=== PATIENT | male | born 1975 | race Caucasian/White ===

== ENCOUNTER → 2018-11-22 | Outpatient (CLI) | payer BC ==
--- NOTE | 2018-11-22 09:46 | CT ---
EXAMINATION TYPE: CT lower extremity RT w con DATE OF EXAM: 11/22/2018 COMPARISON: None HISTORY: 43 year-old male inner right thigh mass TECHNIQUE: Contiguous axial scanning of the right femur performed with IV Contrast, patient injected with 100 mL of Isovue 300. Coronal/sagittal reconstructions performed. CT DLP: 2000.4 mGycm Automated exposure control for dose reduction was used. FINDINGS: Very large patient body habitus. There is an edematous panniculus of the medial aspect of the right thigh corresponding to the mass. E xtensive edematous change is present underlying this region. No abnormal nodular or masslike area of enhancement is present here. There is associated skin thickening in the region measures approximately 21.8 x 19.4 cm. No edema seen along the deeper fascial planes. Underlying osseous structures show no periostitis or o steolysis. There is tricompartmental degenerative change of the right knee. IMPRESSION: MARKEDLY EDEMATOUS PANNICULUS FROM THE MEDIAL ASPECT OF THE RIGHT THIGH MEASURING UP TO 22 CM WITH EX TENSIVE CONFLUENT EDEMA AND SKIN THICKENING. THERE IS NO DISCRETE MASS. CONSIDER A SKIN PUNCH BIOPSY TO FURTHER EVALUATE THE LOCALIZED PROCESS. THE UNDERLYING SUPERFICIAL FASCIA, MUSCULATURE, AND FEMUR OF THE RIGHT THIGH ARE UNREMARKABLE.
== END ==
LOC: RADCTMAIN 07:29
PROVIDERS: ATTEND Surgery
DX: R60.9 Edema, unspecified (principal); M79.89 Other specified soft tissue disorders

== ENCOUNTER → 2020-04-08 | Outpatient (CLI) | payer OTHER ==
--- NOTE | 2020-04-09 08:53 | CT ---
EXAMINATION TYPE: CT lower extremity RT w con DATE OF EXAM: 04/08/2020 COMPARISON: HISTORY: Localized swelling Rt leg, pt had lipoma removed last year, c/o it returning and getting lar terry CT DLP: 1756.60 mGycm Automated exposure control for dose reduction was used. CONTRAST: Performed with IV Contrast, patient injected with 100 mL of Isovue 300. CT of the lower extremity is performed utilizing 5 mm thick sections. Reconstructed images in the cor onal and sagittal plane are reviewed. This is compared to 11/23/2019. FINDINGS: There is a large hyperdense medial right subcutaneous mass. This has stranding within the soft tissue s with ill-defined margins. This extends towards but does not appear to involve the musculature of th e leg. There is a vascular structure, the right superficial femoral artery, which appears to deviate into this region. Branches and the superficial femoral artery appear to be involved to the lowest lev el of this masslike area. Masslike area is estimated to measure approximately 23 x 17 x 29 cm. This a lorna may be slightly larger than the comparison study. Previous measurements 19 x 22 cm versus 23 x 29 on current study. There appears to be some mild linear increased signal within the midportion of thi s structure which is a change from the comparison. This could be related to prior surgery. Correlate with history. IMPRESSION: ENLARGING SOFT TISSUE MASSLIKE AREA MEDIAL THIGH. THIS HAS SOME INVOLVEMENT OF THE SUPERFICIAL FEMORA L ARTERY INTO THIS MASSLIKE AREA WITHIN ITS INFERIOR MEDIAL ASPECT . OTHERWISE, DEEP MUSCULAR STRUCTU RES AND OSSEOUS STRUCTURES ARE UNINVOLVED. CONSIDER THE POSSIBILITY OF LIPOSARCOMA.
== END | disposition home or self-care (01) ==
LOC: RADCTMAIN 17:45
PROVIDERS: ATTEND Family Medicine
DX: R22.41 Localized swelling, mass and lump, right lower limb (principal)
CPT/HCPCS: 73701; Q9967

== ENCOUNTER → 2020-12-04 | Outpatient (CLI) | payer OTHER | END | disposition home or self-care (01) | LOC: RADCTMAIN 17:34 | PROVIDERS: ATTEND Family Medicine | DX: Z53.9 Procedure and treatment not carried out, unspecified reason (principal) ==

== ENCOUNTER → 2020-12-09 | Outpatient (CLI) | payer OTHER ==
--- NOTE | 2020-12-10 07:27 | CT ---
EXAMINATION TYPE: CT chest abdomen wo/w con DATE OF EXAM: 12/09/2020 COMPARISON: 05/28/2020 HISTORY: Lung nodule, pancreatic mass. CT DLP: 4304.3 mGycm CONTRAST: CT scan of the chest, abdomen is performed with Oral Contrast and with IV Contrast, patient injected with 100 mL of Isovue 370. Given tube artifact CT of the abdomen is limited. Extensive streak artifac t and image distortion. CT Chest: LUNGS: The lungs are clear and free of infiltrate or atelectasis. Nodular scarring left lower lobe i s unchanged. No pulmonary nodule or mass is detected. No pleural effusion or CT evidence of intersti tial lung disease. MEDIASTINUM: Thoracic aorta is of normal caliber. The heart is not enlarged. No evidence for media stinal mass or adenopathy. HILAR STRUCTURES: No evidence for mass. No hilar adenopathy is appreciated. OTHER: No significant abnormality. CONTRAST CT ABDOMEN AND PELVIS FINDINGS: LIVER/GB: No calcified gallstones. No space occupying hepatic lesion. Biliary tree is of normal ca liber. PANCREAS: No definitive inflammatory process seen. Adjacent to the pancreatic tail is a 1.7 cm lesion of the similar attenuation of the spleen on this could reflect a splenule. Lesion of other etiology is not excluded. SPLEEN: No splenic enlargement. No lesion seen. ADRENALS: No nodule. No thickening. KIDNEYS/BLADDER: No hydronephrosis. No nephrolithiasis. No disctinct renal mass. BOWEL: Visualized portions of the bowel are grossly unremarkable. LYMPH NODES: No greater than 1cm abdominal or pelvic lymph nodes are appreciated. AORTA: No significant abnormality. OSSEOUS STRUCTURES: Degenerative changes. OTHER: No significant additional abnormality is seen. IMPRESSION: 1. Given tube artifact CT of the abdomen is limited. Extensive streak artifact and image distortion. 2.Adjacent to the pancreatic tail is a 1.7 cm lesion of the similar attenuation of the spleen on this could reflect a splenule. Lesion of other etiology is not excluded. 3. Nodular scarring left lower lobe.
== END | disposition home or self-care (01) ==
LOC: RADCTMAIN 14:42
PROVIDERS: ATTEND Family Medicine
DX: K86.9 Disease of pancreas, unspecified (principal); J98.4 Other disorders of lung
CPT/HCPCS: 71270; 74170; Q9967